=== PATIENT | female | born 1945 | race Caucasian/White ===

== ENCOUNTER 2024-06-19 16:09 | Emergency (ER) | payer MEDICARE, SELFPAY ==
[2024-06-19 16:12] VITALS: BP 174/108
--- NOTE | 2024-06-19 16:23 | ED.GENMED ---
History of Present Illness
General
Chief Complaint: Musculo-Skeletal Complaint
Source: patient
Exam Limitations: none
Time Seen by Provider: 06/19/24 16:21
History of Present Illness
History of Present Illness:
See MDM
Past History
Past History
ED Past Medical History: HTN
ED Past Surgical History: Orthopedic
Social History
Tobacco: Non-smoker
Alcohol: None
Phy Exam
Physical Exam
Physical Exam:
See MDM
Course
Orders/Labs/Results
Orders:
Orders
06/19/24 16:11
Humerus, Right 2 Views [CR Humerus - Right Min 2 View*] Urgent
Comment:
Reason For Exam: right humerus pain
06/19/24 16:40
Shoulder Immobilizer Right- Tx ONCE
Oxycodone/Acetaminophen [Percocet 5/325] 1 tablet PO NOW STA
Vital Signs
Initial and Last Documented VS:
Initial Vital Signs
Temp Pulse Resp BP Pulse Ox
98.5 F 108 18 174/108 99
06/19/24 16:12 06/19/24 16:12 06/19/24 16:12 06/19/24 16:12 06/19/24 16:12
Last Documented Vital Signs
Temp Pulse Resp BP Pulse Ox
98.5 F 108 18 174/108 99
06/19/24 16:12 06/19/24 16:12 06/19/24 16:12 06/19/24 16:12 06/19/24 16:12
MDM/Problems Addressed
Differential Diagnosis Includes:
HPI and MDM Narrative:
78-year-old female presenting with right arm pain. Patient tripped and fell on a rug. She complains of right upper arm pain but denies numbness or tingling. Patient denies head injury.
Physical exam
General: Well appearing and non-toxic
HEENT: protecting airway
Neck: appears supple
CV: No evidence of cyanosis
Resp: No accessory muscle use
Abd: Non-distended
Extremities: Swelling and tenderness to right upper arm. Distal extremity neurovascular intact
Neuro: alert
Psych: Normal affect
Skin: Intact
Problems Addressed including Acute and Chronic Conditions affecting care:
1. Humeral neck fracture
Acuity: acute
Prognosis: stable
Details: Patient placed in shoulder immobilizer and provided pain medicine. Discussed follow-up with orthopedics. Because she lives in [place], she is leaving today and will follow-up at home. Patient given CD of the x-ray
Differential Diagnosis (but not limited to): Humeral fracture, humeral dislocation, clavicle fracture
Testing considered: CT head
Drug therapy (if applicable): OTC meds, please see d/c instruction regarding Rx drugs
Amount and/or Complexity of Data Reviewed
Clinical info obtained from: Patient
External data reviewed: N/A
Labs I independently reviewed (but not limited to): N/A
Radiology: X-ray independently reviewed: Humeral neck fracture
Pulse Ox: not hypoxic
EKG independently reviewed: N/A
Sleeve Setter: N/A
Critical Care: N/A
Risk of Complication:
Social Determinants of health: Good social support
Discussed with other providers: N/A
Escalation of Care includes Admit/Obs: After being observed in the Emergency Department, pt stable for discharge.
Occasional wrong word or 'sound a like' substitutions may have occurred due to the inherent limitations of voice recognition software. Read the chart carefully and recognize, using context, where substitutions have occurred.
*Critical Care Note
Total Time (30-74mins, 75-104mins- exclusive of procedures): Not Applicable
ED Attending Note
-
Portions of this chart may have been created with voice recognition software.� Occasional wrong word or��sound alike� substitutions may have occurred due to the inherent limitations of voice recognition software.
Discharge Plan
Departure
Patient Disposition: Home (Routine Discharge)
Date of Disposition: 06/19/24
Time of Disposition: 16:48
Patient with high blood pressure during this ER visit?: Yes
Discharge Problem:
Fracture of neck of right humerus
Instructions: Upper Arm Fracture ED
Prescriptions:
New
oxycodone 5 mg tablet
5 mg PO Q8H PRN (Reason: Pain) Qty: 14 0RF
Activity Restrictions/Additional Instructions:
Please return for any worsening symptoms.
You may return at any time if you have further concerns.
Please follow up with the orthopedist at the first available appointment, preferably this week.
You were given a prescription for narcotics. If you require this pain medicine, please take a daily [id number] stool softener to avoid constipation.
Thank you for choosing [facility].
Interventions
Interventions:
*Risk Screen - Suicide Last Done: 06/19/24 16:12
*General Assessment Last Done: 06/19/24 16:12
*Neglect/Abuse Screening Last Done: 06/19/24 16:12
*ED COVID-19 Vaccine History Last Done: 06/19/24 16:12
Discharge Date and Time
Print Language: [id number]
[2024-06-19] MEDS: PERCOCET 5/325 1 TABLET PO (16:58)
== END 2024-06-19 17:35 | disposition home or self-care (01) ==
LOC: EMR 16:09
PROVIDERS: EMERGENCY PHYSICIAN Student in an Organized Health Care Education/Training Program
DX: S42.211A Unspecified displaced fracture of surgical neck of right humerus, initial encounter for closed fracture (principal); W01.0XXA Fall on same level from slipping, tripping and stumbling without subsequent striking against object, initial encounter; I10 Essential (primary) hypertension; Z88.5 Allergy status to narcotic agent
CPT/HCPCS: 99283; 29125; 73060